=== PATIENT | female | born 1990 | race Two or more races ===

== ENCOUNTER → 2019-05-23 | Outpatient (CLI) | payer OTHER ==
[~2019-05-23] MED LIST: ADVAIR 100-501 EACH IH; PROVENTIL HFA6.7 GM IH; PROVENTIL3 ML/2.5 M IH; SINGULAIR 10MG10 MG PO; SINGULAIR10 MG PO
== END | disposition home or self-care (01) ==
LOC: PRENATAL 15:00
DX: O35.3XX0 Maternal care for (suspected) damage to fetus from viral disease in mother, not applicable or unspecified (principal); O09.523 Supervision of elderly multigravida, third trimester

== ENCOUNTER 2019-06-26 09:36 | Inpatient (IN) | payer OTHER ==
[~2019-06-26] VITALS: Ht 160 cm; Wt 79.4 kg
[2019-06-26] MEDS ORDERED: PRENATAL CAPLE1 EAC1 PO (09:49)
== END 2019-06-28 13:28 | disposition home or self-care (01) | DRG 807 ==
LOC: LDR 09:36 → OB/GYN 12:39
PROVIDERS: ADMIT Obstetrics & Gynecology Obstetrics
PROC: 10E0XZZ Delivery of Products of Conception, External Approach (ICD-10-PCS; principal; 2019-06-26)
PROC: 0W8NXZZ Division of Female Perineum, External Approach (ICD-10-PCS; 2019-06-26)
PROC: 4A1HXFZ Monitoring of Products of Conception, Cardiac Rhythm, External Approach (ICD-10-PCS; 2019-06-26)
PROC: 3E033VJ Introduction of Other Hormone into Peripheral Vein, Percutaneous Approach (ICD-10-PCS; 2019-06-26)
DX: O80 Encounter for full-term uncomplicated delivery (principal); Z37.0 Single live birth; Z3A.39 39 weeks gestation of pregnancy

== ENCOUNTER 2019-08-31 09:00 | Day surgery (SDC) | payer OTHER ==
[~2019-08-31 09:00] MED LIST changes: +PRENATAL CAPLE1 EAC1 PO
== END 2019-08-31 17:55 | disposition home or self-care (01) ==
LOC: CIR.AMB 09:00
PROVIDERS: ATTEND Obstetrics & Gynecology Obstetrics
DX: Z30.2 Encounter for sterilization (principal)